=== PATIENT | male | born 2000 | race Two or more races ===

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

== ENCOUNTER 2021-07-16 12:34 | Emergency (ER) | payer MEDICAID, OTHER ==
[~2021-07-16] VITALS: Ht 172.7 cm; Wt 79.5 kg
[~2021-07-16 12:34] MED LIST changes: +AMOX500C PO; +ESCI10TA16; -ESCI10TA2
[2021-07-16 12:35] VITALS: BP 145/87
[2021-07-16] MEDS ORDERED: ANUS2.5C2 TOP (14:17)
[2021-07-16] MEDS ORDERED: MIRA3350 PO (14:17)
== END 2021-07-16 14:26 | disposition home or self-care (01) ==
LOC: M ED 12:34
DX: K59.00 Constipation, unspecified (principal); K64.4 Residual hemorrhoidal skin tags

== ENCOUNTER 2023-08-03 04:50 | Emergency (ER) | payer OTHER ==
[~2023-08-03] VITALS: Ht 172.7 cm; Wt 75.9 kg
[~2023-08-03 04:50] MED LIST changes: +ANUS2.5C2 TOP; +MIRA3350 PO
[2023-08-03] MEDS ORDERED: NS 1,000 ML IV ONE (07:40)
[2023-08-03 08:45] LABS: BASO % 0.3 % (0.0-1.0); EOS % 0.4 % (0.0-3.0); HEMOGLOBIN 14.5 g/dl (13.5-17.5); LYMPH # 1.7 10^3/uL (1.5-5.0); LYMPH % 17.5 % (24.0-44.0); MEAN CORPUSCULAR HEMOGLOBIN 30.1 pg (27.0-33.0); MEAN CORPUSCULAR HGB CONC 34.5 g/dl (32.0-36.5); MEAN CORPUSCULAR VOLUME 87.3 fl (80.0-96.0); MONO # 0.8 10^3/uL (0.0-0.8); MONO % 8.4 % (2.0-8.0); NEUTROPHILS % 73.2 % (36.0-66.0); PLATELET COUNT, AUTOMATED 195 10^3/uL (150-450); RED BLOOD COUNT 4.81 10^6/uL (4.30-6.10); WHITE BLOOD COUNT 9.6 10^3/uL (4.0-10.0)
[2023-08-03 09:17] LABS: ETHYL ALCOHOL (ETHANOL) < 0.003 % (0.000-0.010)
[2023-08-03 09:21] LABS: ALBUMIN 4.1 G/DL (3.2-5.2); ALKALINE PHOSPHATASE 50 U/L (46-116); ALT/SGPT 20 U/L (7.0-40); AST/SGOT 40 U/L (<34); BILIRUBIN,DIRECT 0.2 MG/DL (<0.4); BILIRUBIN,TOTAL 0.6 MG/DL (0.3-1.2); BLOOD UREA NITROGEN 15 MG/DL (9-23); CALCIUM LEVEL 8.8 MG/DL (8.5-10.1); CARBON DIOXIDE LEVEL 28 MMOL/L (20-31); CHLORIDE LEVEL 107 MMOL/L (98-107); CPK CREATINE PHOSPHOKINASE 318 U/L (46-171); CREATININE FOR GFR 1.02 MG/DL (0.70-1.30); GLOMERULAR FILTRATION RATE > 60.0 (>60); GLUCOSE, FASTING 95 MG/DL (60-100); POTASSIUM SERUM 4.5 MMOL/L (3.5-5.1); SODIUM LEVEL 140 MMOL/L (136-145)
[2023-08-03 11:00] VITALS: BP 131/69; O2SAT 100
[2023-08-03 11:18] VITALS: TEMP 96.2
== END 2023-08-03 11:25 | disposition home or self-care (01) ==
LOC: M ED 04:50
DX: F19.129 Other psychoactive substance abuse with intoxication, unspecified (principal); Z79.899 Other long term (current) drug therapy